=== PATIENT | female | born 1950 | race African-American/Black ===

== ENCOUNTER 2016-11-06 18:06 | Emergency (ER) | payer OTHER ==
[~2016-11-06] VITALS: Ht 162.6 cm; Wt 66.0 kg
[~2016-11-06 18:06] MED LIST: BACTERICIN30 GM TP; CALTRATE 6001 TABLE1 PO; KEFLEX500 MG PO; METFORMIN HCL500 MG PO; MOBIC7.5 MG PO; MOTRIN800 MG PO; PERCOCET 5/31 TABLET PO; SILVADENE20 GM TP
[2016-11-06 18:30] VITALS: BP 180/120
[2016-11-06] MEDS ORDERED: NAPROSYN500 MG PO (19:03)
[2016-11-06 19:38] VITALS: BP 148/85
== END 2016-11-06 19:40 | disposition home or self-care (01) ==
LOC: EME 18:06 → EDBD 18:06 → EME 19:40
DX: S80.01XA Contusion of right knee, initial encounter (principal); R10.9 Unspecified abdominal pain; W01.0XXA Fall on same level from slipping, tripping and stumbling without subsequent striking against object, initial encounter; Y92.512 Supermarket, store or market as the place of occurrence of the external cause; I10 Essential (primary) hypertension; R73.03 Prediabetes
CPT/HCPCS: 73564; 99281; 99284

== ENCOUNTER 2016-12-20 16:43 | Emergency (ER) | payer OTHER ==
[~2016-12-20] VITALS: Ht 162.6 cm; Wt 61.1 kg
[~2016-12-20 16:43] MED LIST changes: +NAPROSYN500 MG PO
[2016-12-20 16:50] VITALS: BP 127/83
[2016-12-21] MEDS ORDERED: INDOCIN50 MG PO (18:50)
== END 2016-12-20 19:09 | disposition left against medical advice (07) ==
LOC: EME 16:43
DX: M25.562 Pain in left knee (principal); Z53.21 Procedure and treatment not carried out due to patient leaving prior to being seen by health care provider
CPT/HCPCS: 73564

== ENCOUNTER 2016-12-21 16:12 | Emergency (ER) | payer OTHER ==
[~2016-12-21] VITALS: Ht 162.6 cm; Wt 60.2 kg
[2016-12-21] MEDS ORDERED: INDOCIN50 MG PO (18:50)
[2016-12-21 19:11] VITALS: BP 120/84
== END 2016-12-21 19:12 | disposition home or self-care (01) ==
LOC: EME 16:12
DX: M25.562 Pain in left knee (principal); W10.9XXA Fall (on) (from) unspecified stairs and steps, initial encounter
CPT/HCPCS: 99281; 99283

== ENCOUNTER 2017-02-23 14:44 | Emergency (ER) | payer OTHER ==
[~2017-02-23] VITALS: Ht 162.6 cm; Wt 58.2 kg
[~2017-02-23 14:44] MED LIST changes: +INDOCIN50 MG PO
[2017-02-23 14:50] VITALS: BP 135/78
== END 2017-02-23 15:06 | disposition left against medical advice (07) ==
LOC: EME 14:44
DX: Z53.21 Procedure and treatment not carried out due to patient leaving prior to being seen by health care provider (principal)

== ENCOUNTER 2017-06-11 16:55 | Emergency (ER) | payer OTHER ==
[~2017-06-11] VITALS: Ht 162.6 cm; Wt 61.9 kg
[2017-06-11 17:45] LABS: HEMATOCRIT 31.5 % (36.0-46.0); MCH 29.7 PG (29.0-34.0); MEAN PLAT.VOLUME 9.4 uM^3 (9.5-12.4); PLATELET COUNT 252 K/uL (156-360); RBC DIS.WIDTH-CV 13.8 % (11.8-14.6); RBC DIS.WIDTH-SD 45.3 % (39-53); WHITE BLOOD COUNT 5.5 K/uL (4.1-10.2)
[2017-06-11 17:48] LABS: CHLORIDE 116 mEq/L (99-109); POTASSIUM 5.5 mEq/L (3.7-5.4); SODIUM 136 mEq/L (136-147)
[2017-06-11 17:50] LABS: GLUCOSE 144 mg/dL (70-99)
[2017-06-11 17:51] LABS: ANION GAP 6 MEQ/L (2-14)
[2017-06-11 17:54] LABS: GFR ESTIMATE (CALCULATED) 41 mL/min/; UREA NITROGEN (BUN) 45 mg/dL (9-23)
[2017-06-11 18:00] LABS: TROP-I INTERPRETATION NEGATIVE; TROPONIN-I < 0.01 ng/mL (0.0-0.30)
[2017-06-11 21:53] LABS: CHLORIDE 118 mEq/L (99-109); POTASSIUM 4.8 mEq/L (3.7-5.4); SODIUM 141 mEq/L (136-147)
[2017-06-11 21:55] LABS: GLUCOSE 140 mg/dL (70-99)
[2017-06-11 21:56] LABS: ANION GAP 7 MEQ/L (2-14)
[2017-06-11 21:59] LABS: GFR ESTIMATE (CALCULATED) 52 mL/min/
[2017-06-11 22:00] LABS: UREA NITROGEN (BUN) 44 mg/dL (9-23)
[2017-06-11 22:25] VITALS: BP 144/86
== END 2017-06-11 22:27 | disposition home or self-care (01) ==
LOC: EME 16:55
PROVIDERS: Nurse Practitioner Family
DX: E86.0 Dehydration (principal); N17.9 Acute kidney failure, unspecified; E11.9 Type 2 diabetes mellitus without complications; I10 Essential (primary) hypertension; E87.5 Hyperkalemia; R00.2 Palpitations; Z79.84 Long term (current) use of oral hypoglycemic drugs
CPT/HCPCS: 71020; 80048; 80048 91; 84484; 85027; 93005; 99281; 99285; J7030